=== PATIENT | female | born 1960 | race Caucasian/White ===

== ENCOUNTER 2017-11-14 12:18 | Emergency (ER) | payer MEDICAID ==
[2017-11-14] MEDS ORDERED: DIPHENHYDRAMINE HCL IV 50 MG/ML VIAL IM ONE (13:11)
[2017-11-14] MEDS ORDERED: METHYLPREDNISOLONE PF 125MG/VIAL IM ONE (13:11)
--- NOTE | 2017-11-14 13:16 | Emergency Department Record ---
History of Present Illness - General Chief complaint: Allergic Reaction Stated complaint: ALLERGIC REACTION Time Seen by Provider: 11/14/17 13:04 Source: Patient Mode of Arrival: Ambulatory Limitations: No limitations - History of Present Illness Initial Comments: The patient is here due to feeling like she is having an allergix rxn for about 2 hours now. She had outpatient surgery 2 days ago to clear out her R arm fistula and was doing well until about 2 hours ago. She developed an itchy rash on her back and neck and feels like her lips are tingling. She denies any trouble swallowing, breathing, voice changes or chest pain. She has had similar issues in the past. She may have eaten something which is new for her also yesterday but has not used any new medicines. The patient did have a full hemodialysis run yesterday and is not due for another run for 2 days. MD Complaint: Allergic reaction Onset/Timin -: Hour(s) Exposure: Food Symptoms: Itching, Rash Treatment Prior to Arrival: Benadryl - Related Data Home Medications Medication Instructions Recorded Confirmed Last Taken Amlodipine Besylate [Norvasc] 10 mg PO DAILY 11/14/17 11/14/17 1 Day Ago ~11/13/17 Ergocalciferol (Vitamin D2) 50,000 unit PO WEEKLY 11/14/17 11/14/17 1 Day Ago [Vitamin D2] ~11/13/17 Furosemide 160 mg PO DAILY 11/14/17 11/14/17 1 Day Ago ~11/13/17 Loratadine 10 mg PO DAILY 11/14/17 11/14/17 1 Day Ago ~11/13/17 Sucroferric Oxyhydroxide [Velphoro] 500 mg PO QID 11/14/17 11/14/17 1 Day Ago ~11/13/17 Previous Rx's Medication Instructions Recorded Prednisone [Prednisone 20Mg] 40 mg PO DAILY #8 tab 11/14/17 Allergies Allergy/AdvReac Type Severity Reaction Status Date / Time iodine Allergy HIVES Verified 11/14/17 12:42 morphine Allergy DIFFICULTY Verified 11/14/17 12:42 BREATHING Iaxltra-Gse-Fxe Reductase Allergy HIVES Verified 11/14/17 12:34 Inhibitor Travel Screening - Travel/Exposure Within Last 30 Days Have you traveled within the last 30 days?: No - Travel/Exposure Within Last Year Have you traveled outside the [place] in the last year?: No - Additonal Travel Details Have you been exposed to anyone with a communicable illness?: No - Travel Symptoms Symptom Screening: None Review of Systems Constitutional: Denies: Chills, Fever Eyes: Denies: Eye discharge ENT: Denies: Congestion Respiratory: Denies: Cough, Dyspnea Skin: Reports: Rash Past Medical History - SOCIAL HISTORY Smoking Status: Former smoker Alcohol Use: Occasional Drug Use: None - RESPIRATORY Hx COPD: Yes Hx Sleep Apnea: Yes - CARDIOVASCULAR Hx Cardiac Cath: Yes (5 stents) Hx Heart Attack: Yes (09/11/11) Hx Hypertension: Yes Comment:: valve dx - NEURO Hx Headaches: Yes - GI Hx Reflux: Yes Comment:: spastic colon - Hx Renal Disease: Yes (failure stage 4) - ENDOCRINE Hx Diabetes: No Hx Thyroid Disease: No - MUSCULOSKELETAL Hx Arthritis: Yes - PSYCH Hx Psych Problems: No - HEMATOLOGY/ONCOLOGY Hx Blood Disorders: Yes Hx Bruising: Yes Hx Cancer: No Family Medical History Any Significant Family History?: Yes Physical Exam - General General Appearance: Alert, Oriented x3, Cooperative, No acute distress - Head Head exam: Atraumatic, Normocephalic, Normal inspection - Eye Eye exam: Normal appearance, PERRL - ENT Mouth exam: Normal external inspection, Tongue normal. negative: Drooling, Muffled voice, Tongue elevation, Trismus Teeth exam: Normal inspection, Dental caries Throat exam: Normal inspection. negative: Tonsillar erythema, Tonsillar exudate - Neck Neck exam: Normal inspection, Full ROM. negative: Lymphadenopathy, Meningismus , Tenderness - Respiratory Respiratory exam: Normal lung sounds bilaterally. negative: Respiratory distress - Cardiovascular Cardiovascular Exam: Regular rate, Normal rhythm, Normal heart sounds - Extremities Extremities exam: Full ROM, Normal capillary refill. negative: Tenderness - Skin Skin exam: Rash, Urticaria (mildly over the upper back and neck and shoulder area.) Course Vital Signs 11/14/17 12:21 Temperature 97.9 F Pulse Rate 95 H Respiratory 13 Rate Blood Pressure 190/90 Pulse Ox 98 - Reevaluation(s) Reevaluation #1: The patient is doing a lot better. Her rash is improved and she denies any trouble swallowing, breathing, or SOB. I did explain to her that the lab work and xrays are WNL's for her and she is to continue the Benadryl and Prednisone as directed. 11/14/17 14:08 Medical Decision Making - Data Complexity MDM Data: Labs Ordered and/or Reviewed, X-Ray Ordered and/or Reviewed - Lab Data Result diagrams: 11/14/17 13:30 11/14/17 13:30 - Radiology Data Radiology results: Report reviewed (CXR: No CHF or infiltrates.) Disposition Disposition: Discharge Clinical Impression: Allergic reaction Qualifiers: Encounter type: initial encounter Qualified Code(s): T78.40XA - Allergy, unspecified, initial encounter Disposition: Home, Self-Care Condition: (2) Stable Instructions: Urticaria (ED) Additional Instructions: Please continue the Benadryl and Prednisone as directed. Please see your PCP for recheck in 2-3 days. Return to the ER for any worsening rash, trouble swallowing, voice changes, or trouble breathing. Prescriptions: Prednisone [Prednisone 20Mg] 40 mg PO DAILY #8 tab Forms: Patient Portal Access Time of Disposition: 14:08 Quality - Quality Measures Quality Measures: N/A - Blood Pressure Screening View Details: Yes Does Patient Have Any of the Following: No Blood Pressure Classification: Hypertensive Reading Systolic Measurement: 190 Diastolic Measurement: 90 Screening for High Blood Pressure: < Pre-Hypertensive BP, F/U Documented > [ [id number]] Pre-Hypertensive Follow-up Interventions: Referral to alternative/primary care provider.
[2017-11-14 13:35] LABS: BASO % 0.9 % (0-6); GRAN % 72.3 % (47-80); HEMOGLOBIN 10.3 gm/dl (11.6-16.0); LYMPH % 17.5 % (16-45); MEAN CELL VOLUME 91.4 fl (81-97); MEAN CORPUSCULAR HEMOGLOBIN 25.4 pg (27-33); MEAN CORPUSCULAR HGB CONC 27.8 g/dl (32-36); MEAN PLATELET VOLUME 8.8 fl (7.4-10.4); MONO % 7.3 % (0-9); PLATELET COUNT 248 K/uL (130-400); RED BLOOD COUNT 4.05 M/uL (3.80-5.40); RED CELL DISTRIBUTION WIDTH 18.7 % (11.5-14.5); WHITE BLOOD COUNT W/O DIFF 5.9 K/uL (4.2-12.2)
[2017-11-14 13:47] LABS: CREATININE 5.1 mg/dL (0.5-0.9)
--- NOTE | 2017-11-15 09:03 | RADIOLOGY REPORT ---
EXAM: CHEST, TWO VIEWS HISTORY: ALLERGIC REACTION. TECHNIQUE: Upright PA and lateral views of the chest were obtained. Comparison: None. FINDINGS: The heart is not enlarged and the pulmonary vasculature is nondilated. Mild patchy predominantly linear opacities are noted in each lung base likely relating to atelectasis or scarring with infiltrate unlikely. No lung consolidation, costophrenic angle blunting or pneumothorax. Mild degenerative changes. IMPRESSION: PATCHY PREDOMINANTLY LINEAR OPACITIES IN EACH LUNG BASE LIKELY RELATING TO ATELECTASIS OR SCAR. JOB NUMBER: [id number] [facility]
== END 2017-11-14 14:12 | disposition home or self-care (01) ==
LOC: ER 12:18
DX: L50.0 Allergic urticaria (principal); R06.00 Dyspnea, unspecified; R13.10 Dysphagia, unspecified; R20.2 Paresthesia of skin; I12.9 Hypertensive chronic kidney disease with stage 1 through stage 4 chronic kidney disease, or unspecified chronic kidney disease; N18.4 Chronic kidney disease, stage 4 (severe); J44.9 Chronic obstructive pulmonary disease, unspecified; I25.2 Old myocardial infarction; Z99.2 Dependence on renal dialysis; Z87.891 Personal history of nicotine dependence
CPT/HCPCS: 71046; 80048; 85025; 96372; 99283; 99284; J1200; J2930